=== PATIENT | male | born 1980 | race African-American/Black ===

== ENCOUNTER 2021-03-24 09:01 | Observation (INO) | payer OTHER ==
[2021-03-24] MEDS ORDERED: diphenhydrAMINE 50 MG/ML VIAL ONE (09:27)
[2021-03-24] MEDS ORDERED: methylPREDNISolone Sod Succ/PF 125 MG/2 ML VIAL ONE (09:27)
[2021-03-24] MEDS ORDERED: EPINEPHrine 1 MG/ML VIAL ONE (09:27)
[2021-03-24] MEDS ORDERED: Tranexamic Acid 1,000 MG/10 ML VIAL ONE (09:27)
[2021-03-24] MEDS ORDERED: Famotidine/PF 20 mg/2ml Vial ONE (09:27)
[2021-03-24 12:37] VITALS: BMI 32.9
[2021-03-24] MEDS ORDERED: Ondansetron PF 4 MG/2 ML Vial IVP PRN (12:45)
[2021-03-24] MEDS ORDERED: Acetaminophen 325 MG TAB PO PRN (12:45)
[2021-03-24] MEDS ORDERED: Ondansetron ODT 4 MG TAB SL PRN (12:45)
[2021-03-24] MEDS: Sodium Chloride 0.9% 1,000 ML IV SCH ×2 (12:47→20:41)
[2021-03-24] MEDS ORDERED: EPINEPHrine 1 mg/ml MDV (1ml Charge) IM PRN (13:12)
[2021-03-24] MEDS ORDERED: Cetirizine HCl 10 MG TAB PO ONE (13:16)
[2021-03-24 14:00] LABS: #Lymphocytes 0.5 thou/uL (1.20-3.40); #Monocytes 0.1 thou/uL (0.11-0.59); #Neutrophils 4.3 thou/uL (1.40-6.50); %Basophils 0.2 % (0.0-1.0); %Eosinophils 0.2 % (0.0-10.0); %Lymphocytes 9.6 % (21.0-51.0); %Monocytes 2.2 % (0.0-10.0); %Neutrophils 87.7 % (42.0-75.0); Hemoglobin 10.4 g/dL (14.0-18.0); Mean Corpuscular HGB CONC 31.2 g/dL (32.0-36.0); Mean Corpuscular Hemoglobin 23.8 pg (27.0-31.0); Mean Corpuscular Volume 76.4 fL (78.0-98.0); Platelet Count 266 thou/uL (130-400); RBC Distribution Width 16.2 % (11.5-14.5); Red Blood Cell (RBC) Count 4.38 mill/uL (4.70-6.10); White Blood Cell (WBC) Count 4.9 thou/uL (4.8-10.8)
[2021-03-24 14:23] LABS: ALT (SGPT) 17 U/L (8-55); AST (SGOT) 27 U/L (5-34); Albumin 4.1 g/dL (3.5-5.0); Alkaline Phosphatase 60 U/L (40-110); Anion Gap 12 mmol/L (10-20); BUN (Urea Nitrogen) 11 mg/dL (8.9-20.6); Bilirubin, Total 0.2 mg/dL (0.2-1.2); Calc. Creatinine Clearance 133 mL/min (70-130); Calcium 9.4 mg/dL (7.8-10.44); Carbon Dioxide 26 mmol/L (22-29); Chloride 106 mmol/L (98-107); Globulin 3.7 g/dL (2.4-3.5); Glucose 107 mg/dL (70-105); Potassium 4.6 mmol/L (3.5-5.1); Protein, Total 7.8 g/dL (6.0-8.3); Sodium 139 mmol/L (136-145)
[2021-03-24] MEDS: Haloperidol 5 MG TAB PO SCH ×2 (20:34→22:10)
[2021-03-24] MEDS: Venlafaxine HCl XR 75 MG CAP PO SCH ×2 (20:36→22:10)
[2021-03-24] MEDS ORDERED: diphenhydrAMINE 50 MG CAP PO SCH (22:00)
[2021-03-25] MEDS: Sodium Chloride 0.9% 1,000 ML IV SCH (04:42)
[2021-03-25] MEDS: predniSONE 20 MG TAB PO SCH (08:19)
[2021-03-25] MEDS ORDERED: Loratadine 10 MG TAB PO SCH (09:00)
[2021-03-25 16:13] LABS: SARS-CoV-2 PCR NAA for Saliva Not Detected (NotDetected)
[2021-03-25] MEDS: Venlafaxine HCl XR 75 MG CAP PO SCH (20:42)
[2021-03-25] MEDS: Loratadine 10 MG TAB PO SCH (20:43)
[2021-03-25] MEDS: Famotidine 20 MG TAB PO SCH (20:43)
[2021-03-25] MEDS ORDERED: diphenhydrAMINE 50 MG CAP PO SCH (21:00)
[2021-03-26] MEDS: Loratadine 10 MG TAB PO SCH (08:00)
[2021-03-26] MEDS: Famotidine 20 MG TAB PO SCH (08:00)
[2021-03-26] MEDS: predniSONE 20 MG TAB PO SCH (08:00)
[2021-03-26 11:45] VITALS: BP 124/68; TEMP 98.1
== END 2021-03-26 13:46 ==
LOC: ERS 09:01 → 2SW 10:53
PROVIDERS: ADMIT Emergency Medicine; ATTEND Emergency Medicine
DX: T78.3XXA Angioneurotic edema, initial encounter (principal); I10 Essential (primary) hypertension; F32.9 Major depressive disorder, single episode, unspecified; D50.9 Iron deficiency anemia, unspecified; Z20.822 Contact with and (suspected) exposure to COVID-19; Z79.899 Other long term (current) drug therapy; X58.XXXA Exposure to other specified factors, initial encounter
CPT/HCPCS: 36415; 36416; 80053; 85025; 85652; 86140; 86160; 96372; 96374; 96375; G0378; J0171; J1200; J2930; J7050; J7512; S0028; U0003; U0005